=== PATIENT | male | born 1955 | race Hispanic/Latino ===

== ENCOUNTER 2024-03-16 12:42 | Emergency (ER) | payer OTHER, SELFPAY ==
[2024-03-16 12:57] VITALS: BP 156/59; PULSE 85; RESP 20; TEMP 36.5; O2SAT 94
--- NOTE | 2024-03-16 13:27 | ED.URI ---
HPI - URI/Sore Throat General Chief Complaint: Upper Respiratory Infection Stated Complaint: Cough/Bodyaches Time Seen by Provider: 03/16/24 13:27 Source: patient and RN notes reviewed Mode of arrival: ambulatory Limitations: no limitations History of Present Illness HPI Narrative: 68-year-old male presents with concern of for cough, chills, sweats, body aches. Reports he has been coughing for several weeks, his doctor called him in some cough medicine. Reports he went through all of that. Reports the symptoms of chills, body aches, sweats recently started. MD elicited complaint: cough Related Data Home Medications Medication Instructions Recorded Confirmed dapagliflozin propanediol 10 mg mg 03/16/24 tablet (Farxiga) diclofenac sodium 75 mg mg PO 03/16/24 tablet,delayed release ferrous sulfate 325 mg (65 mg mg 03/16/24 iron) tablet (FeroSul) gabapentin 800 mg tablet mg 03/16/24 insulin glargine 100 unit/mL unit subcut 03/16/24 subcutaneous solution (Lantus U-100 Insulin) losartan 25 mg tablet mg 03/16/24 metformin 500 mg tablet mg 03/16/24 pioglitazone 45 mg tablet mg 03/16/24 pravastatin 40 mg tablet mg 03/16/24 semaglutide 3 mg tablet (Rybelsus) mg PO 03/16/24 Allergies Allergy/AdvReac Type Severity Reaction Status Date / Time No Known Allergies Allergy Verified 03/16/24 13:22 Review of Systems Review of Systems: CONSTITUTIONAL: Reports malaise, chills, sweats EYES: Denies visual changes, redness, or discharge. ENT: Denies rhinorrhea, congestion, sinus pain, otalgia and sore throat. CARDIOVASCULAR: Denies chest pain, palpitations, or edema. RESPIRATORY: Reports cough. Denies dyspnea. GASTROINTESTINAL: Denies abdominal pain, nausea, vomiting, diarrhea SKIN: Denies rash or itching. MUSCULOSKELETAL: Denies myalgia. NEUROLOGIC: Denies headache. All systems reviewed & are unremarkable except as noted in HPI and below PMFSH Comments At time of signature, agree with nursing past medical, surgical, social and family history. There is no relevant family history pertinent to the presenting complaint Exam Narrative: GENERAL: Well-appearing, well-nourished, and in no acute distress. HEAD: Normocephalic EYES: PERRLA, conjunctivae clear ENT: Nares clear, turbinates edematous and erythematous, clear discharge. Mucous membranes moist. TM pearly zarate with dull light reflex bilaterally; no tragal tenderness. Oropharynx not erythematous without lesions. Tonsils not enlarged and without exudate, no drooling, no hoarseness, no trismus, uvula midline. NECK: Supple. No lymphadenopathy CHEST: Slight scattered rhonchi, otherwise Clear to auscultation, breath sounds equal. No wheezing, rales, or stridor. No respiratory distress, speaks in full sentences. HEART: Regular rate and rhythm. No murmur heard. SKIN: Warm, dry, no rash. NEURO: Alert and oriented x3. PSYCH: Normal mood and affect Course Course Emergency Course: Patient is aware of diagnosis, understands and agrees to treatment plan. Anticipatory guidance given. Patient agrees to follow-up as directed and is aware of reasons to seek care at the emergency department. Portions of this record may have been created with voice recognition software Level of Care: Express Care Visit Vital Signs Vital signs: Vital Signs Temperature 97.7 F 03/16/24 12:57 Pulse Rate 85 03/16/24 12:57 Respiratory Rate 20 03/16/24 12:57 Blood Pressure 156/59 H 03/16/24 12:57 Pulse Oximetry 94 03/16/24 12:57 Oxygen Delivery Room Air 03/16/24 12:57 Temperature 97.7 F 03/16/24 12:57 Pulse Rate 85 03/16/24 12:57 Respiratory Rate 20 03/16/24 12:57 Blood Pressure 156/59 H 03/16/24 12:57 Pulse Oximetry 94 03/16/24 12:57 Oxygen Delivery Room Air 03/16/24 12:57 Reviewed. MDM - URI/Sore Throat MDM Narrative Medical decision making narrative: Differential diagnosis considered: Schneider virus, strep pharyngitis, aller
== END 2024-03-16 13:40 | disposition home or self-care (01) ==
PROVIDERS: Emergency Provider Nurse Practitioner; PCP Nurse Practitioner Family
DX: J22 Unspecified acute lower respiratory infection (principal); E78.00 Pure hypercholesterolemia, unspecified; E11.9 Type 2 diabetes mellitus without complications
CPT/HCPCS: 99213; G0463